=== PATIENT | female | born 1980 | race Caucasian/White ===

== ENCOUNTER 2018-08-06 06:29 | Day surgery (SDC) | payer OTHER ==
[2018-08-05 16:38] VITALS: BMI 24.3
[~2018-08-06] VITALS: Ht 165.1 cm; Wt 66.3 kg
[2018-08-06] VITALS (13 sets, daily range): BP systolic 112–138; BP diastolic 56–79; PULSE 72–96; RESP 12–28; Ht 165.1 cm; Wt 66.3 kg
[2018-08-06] MEDS ORDERED: CEFAZOLIN 1 GM INJ ONE (07:00)
[2018-08-06] MEDS ORDERED: SEVOFLURANE 15 MIN ONE (07:00)
[2018-08-06] MEDS ORDERED: [UNRECOGNIZED DRUG - REMARK] (07:34)
[2018-08-06] MEDS ORDERED: ERRIN PO (07:35)
[2018-08-06] MEDS ORDERED: SOD CHLORIDE 0.9% 1,000 ML IV SCH (08:00)
[2018-08-06] MEDS ORDERED: CEFAZOLIN 2 GM/50 ML (PMX) 50 ML IVPB ONE (08:00)
--- NOTE | 2018-08-06 09:15 | PREAC ---
Date/Time of Note Date/Time of Note DATE: 08/06/18 TIME: 09:15 Anesthesia Eval and Record Evaluation Time Pre-Procedure Interview DATE: 08/06/18 TIME: 09:15 Age 38 Sex female NPO: 8 hrs Preoperative diagnosis Cholelithiasis Planned procedure Laparoscopic cholecystectomy Past Medical History Past Medical History: None Surgery & Anesthesia Issues No known issue Meds Anticoagulation: No Beta Annalise within 24 hr: No Reason Beta Annalise not given: Pt. not on B-Annalise Reported Medications [Candy] .35 TAB No Conflict Check, 0.35 MG PO QPM 08/06/18 Discontinued Reported Medications [Err] No Conflict Check 08/06/18 Discontinued Scripts Hydrocodone/Acetaminophen ([place] 5-325 Tablet) 1 Each Tablet, 1 EACH PO Q6, #30 TAB Prov:ANAMARIA FIGUEROA PA-C 04/25/16 Ondansetron (Ondansetron Odt) 4 Mg Tab.rapdis, 4 MG PO Q6H PRN for NAUSEA AND/OR VOMITING, #10 TAB Prov:ANAMARIA FIGUEROA PA-C 04/25/16 Ciprofloxacin Hcl* (Ciprofloxacin Hcl*) 500 Mg Tablet, 500 MG PO BID for 7 Days, TAB Prov:ANAMARIA FIGUEROA PA-C 04/25/16 Current Medications Sodium Chloride 1,000 ml @ 75 mls/hr [id number] IV ; Start 08/06/18 at 08:00; Stop 08/06/18 at 21:19 Meds reviewed: Yes Allergies Coded Allergies: No Known Allergy (Unverified , 06/07/14) Allergies Reviewed: Yes Labs/Studies Labs Reviewed: Reviewed by anesthesiologist Result Diagram: 08/06/18 0725 08/06/18 0725 Laboratory Tests 08/06/18 07:25 test: Negative Pre-procedure Exam Last vitals Vital Signs Date Temp Pulse Resp B/P (MAP) Pulse Ox O2 O2 Flow FiO2 Time Delivery Rate 08/06/18 96.7 85 16 112/59 100 Room Air 06:43 (76) Airway: Adequate mouth opening Mallampati: Mallampati I Teeth: Normal Lung: Normal Heart: Normal ASA Physical Status ASA physical status: 1 Emergency: None Planned Anesthetic General/MAC: ETT Planned Pain Management Parenteral pain med Pre-operative Attestations Prior to commencing anesthesia and surgery, the patient was re-evaluated, there was verification of: *The patient's identity *The results of appropriate recent lab work and preoperative vital signs *The above evaluation not changing prior to induction *Anesthetic plan, risk benefits, alternative and complications discussed with patient/family; questions answered; patient/family understands, accepts and wishes to proceed. EASTON MILLER MD Aug 06, 2018 09:15
[2018-08-06] MEDS ORDERED: BUPIVACAINE 0.25% (MPF) 30 ML INJ ONE (09:16)
[2018-08-06] MEDS ORDERED: ROCURONIUM 50 MG INJ ONE (09:23)
[2018-08-06] MEDS ORDERED: SUCCINYLCHOLINE CHLORIDE 100 MG/5 ML SYG IV ONE (09:23)
[2018-08-06] MEDS ORDERED: LIDOCAINE 2% (SDV) 5 ML INJ ONE (09:23)
[2018-08-06] MEDS ORDERED: GLYCOPYRROLATE 0.4 MG INJ ONE ×2 (09:23→09:52)
[2018-08-06] MEDS ORDERED: MEPERIDINE 100 MG INJ ONE (09:23)
[2018-08-06] MEDS ORDERED: PROPOFOL 20 ML ONE (09:23)
[2018-08-06] MEDS ORDERED: NEOSTIGMINE 3 MG/3 ML SYRINGE ONE (09:23)
[2018-08-06] MEDS ORDERED: METOCLOPRAMIDE 10 MG INJ ONE (09:51)
[2018-08-06] MEDS ORDERED: ONDANSETRON 4 MG INJ ONE (09:51)
[2018-08-06] MEDS ORDERED: DIPHENHYDRAMINE 50 MG INJ IV PRN (10:00)
[2018-08-06] MEDS ORDERED: HYDROmorphONE 1 MG/5 ML IV SYRINGE IV PRN ×2 (10:00)
[2018-08-06] MEDS ORDERED: MIDAZOLAM 1 MG/ML 2 ML INJ IV PRN (10:00)
[2018-08-06] MEDS ORDERED: METOCLOPRAMIDE 10 MG INJ IV PRN (10:00)
[2018-08-06] MEDS ORDERED: FENTAnyl 50 MCG/ML VIAL IV PRN ×2 (10:00)
[2018-08-06] MEDS ORDERED: MEPERIDINE 25 MG INJ IV PRN (10:00)
[2018-08-06] MEDS ORDERED: ONDANSETRON 4 MG INJ IV PRN (10:00)
[2018-08-06] MEDS ORDERED: OXYCODONE/ACETAMINOPHEN (5/325) TAB PO PRN ×2 (10:00)
--- NOTE | 2018-08-06 10:11 | OPR ---
Date/Time of Note Date/Time of Note DATE: 08/06/18 TIME: 10:08 Operative Report Procedure Date: Aug 06, 2018 Preoperative Diagnosis symptomatic gallstones Postoperative Diagnosis same Operation/Procedure Performed 1. laparoscopic cholecystectomy 2. therapeutic injection of subcutaneous local anesthesia Surgeon see signature line Medical Reimbursement Specialist none Anesthesia Type: general Estimated Blood Loss: 10 - 50 ml's Transfusion none Specimen gallbladder Grafts/Implants none Complications none Pt Condition Post Procedure: stable Indications This is a 30-year-old female with symptomatic gallstones. She required surgical excision of her gallbladder. Risks alternatives benefits of percent were discussed the patient. Patient expresses understanding consents to the operation. Procedure Description Patient was taken to the OR and prepped and draped in the usual sterile fashion. She was placed under general anesthesia intubated prior to my arrival as is standard. Infraumbilical incision was made transversely with a 15 blade. Dissection with cautery was carried onto the fascia. The fascia was grasped with Henny's and divided with curved Branch scissors. 0 Vicryl U stitch was placed into the fascia. Tirado trocar was introduced. Pneumoperitoneum is established. Midepigastric 12 mm optical trocar was placed under direct position. Right upper quadrant upper flank 5 mm optical trochars were placed under direct visualization upon initial inspection there is some adhesions to the gallbladder which taken down bluntly. The gallbladder was distended and grasped the fundus and retracted in a lateral cephalad direction. Hook cautery was used laterally to mobilize the gallbladder. [place] graspers were used to isolate and dissect out the cystic duct and cystic artery. The critical view of safety was established. The cystic duct was divided with 3 clips proximal and 1 clip distal. The cystic duct was divided with laparoscopic scissors. Cystic artery was divided in a similar fashion with 3 clips proximal and 1 clip distal and the division was performed with laparoscopic scissors. The gallbladder was taken of the gallbladder bed with good hemostasis of the gallbladder bed. Minimal suction irrigation was used as there was no spillage. The gallbladder was retrieved using Endo Catch bag. Ports removed under direct visualization. 0 Vicryl U stitch was tied down. Skin was closed using skin stapler. Therapeutic subcutaneous local anesthesia was injected through all port site incisions. Dry dressings were applied. Trae ROLDAN Aug 06, 2018 10:11
[2018-08-06] MEDS ORDERED: HYDROCODONE/APAP (5/325) TAB PO ONE (10:30)
[2018-08-06] MEDS: FENTAnyl 50 MCG/ML VIAL IV PRN ×2 (10:31→10:46)
[2018-08-06] MEDS: HYDROmorphONE 1 MG/5 ML IV SYRINGE IV PRN ×2 (10:32→10:45)
--- NOTE | 2018-08-06 11:39 | PAC ---
Date/Time of Note Date/Time of Note DATE: 08/06/18 TIME: 11:39 Post-Anesthesia Notes Post-Anesthesia Note Last documented vital signs Vital Signs Date Temp Pulse Resp B/P (MAP) Pulse Ox O2 O2 Flow FiO2 Time Delivery Rate 08/06/18 98.1 78 17 116/60 98 Room Air 11:03 (78) Activity: WNL Respiratory function: WNL Cardiovascular function: WNL Mental status: Baseline Pain reasonably controlled: Yes Hydration appropriate: Yes Nausea/Vomiting absent: Yes EASTON MILLER MD Aug 06, 2018 11:39
== END 2018-08-06 12:47 | disposition home or self-care (01) ==
LOC: SDS 06:29
PROVIDERS: ATTEND Surgery
DX: K80.80 Other cholelithiasis without obstruction (principal)
CPT/HCPCS: 47562; 80053; 85025; 85610; 85730; J1170; J2175; J2405; J2710; J2765; J3010; Z7610; 84703; 88304; J0690